=== PATIENT | male | born 1990 | race Hispanic/Latino ===

== ENCOUNTER 2019-06-02 01:01 | Emergency (ER) | payer BC ==
[~2019-06-02] VITALS: Ht 162.6 cm; Wt 99.8 kg
--- NOTE | 2019-06-02 01:44 | NUR ---
[facility] NOTIFIED OF US ORDER.
[2019-06-02] MEDS ORDERED: KETOROLAC TROMETHAMINE 30 MG/ML VIAL ONE (01:51)
[2019-06-02] MEDS ORDERED: SODIUM CHLORIDE 0.9% 1000ML 1,000 ML ONE (01:51)
[2019-06-02] MEDS ORDERED: ONDANSETRON HCL INJ 2MG/ML 2ML 2 MG/ML VIAL ONE (01:52)
--- NOTE | 2019-06-02 02:22 | Diagnostic Imaging Report ---
EXAMINATION: CT of the abdomen and pelvis without contrast. TECHNIQUE: Spiral CT images of the abdomen and pelvis were performed from the lung bases to the lesser trochanters. No intravenous contrast was given per physician's request. Coronal and sagittal reformatted images were obtained. COMPARISON: None. CLINICAL HISTORY:Left abdominal and pelvic pain for 2-3 days DISCUSSION: ABSENCE OF INTRAVENOUS CONTRAST DECREASES SENSITIVITY FOR DETECTION OF FOCAL LESIONS AND VASCULAR PATHOLOGY. ABDOMEN/PELVIS: LOWER THORAX: Unremarkable. HEPATOBILIARY: Marked diffuse hepatic steatosis. No focal hepatic lesions. No intra or extrahepatic biliary ductal dilation. GALLBLADDER: No radio-opaque stones or sludge. No wall thickening. SPLEEN: No splenomegaly. PANCREAS: No focal masses or ductal dilatation. ADRENALS: No adrenal nodules. KIDNEYS/URETERS: Punctate nonobstructing calculus in the left inferior pole (coronal image 55). No other renal or ureteral calculi, hydronephrosis or obstruction. No perinephric stranding or contour abnormalities. PELVIC ORGANS/BLADDER: Bladder is decompressed but grossly unremarkable. Prostate is unremarkable. PERITONEUM/RETROPERITONEUM: No free air or fluid. LYMPH NODES: No intra-abdominal,retroperitoneal, pelvic or inguinal lymphadenopathy. VESSELS: Unremarkable for noncontrast exam. GI TRACT: Distal descending and proximal sigmoid diverticulosis. There is an approximately 6 cm segment of the proximal sigmoid colon which shows moderate wall thickening and surrounding inflammatory changes (series 2, image 74 and coronal image 49). No foci of extra luminal air. Rest of the bowel shows no dilation, obstruction or wall thickening. Appendix is well identified and normal in caliber. BONES AND SOFT TISSUES: No aggressive lytic lesions. Soft tissues are unremarkable. IMPRESSION: 1. Findings in the proximal sigmoid colon likely represent diverticulitis. No perforation. Unable to assess for abscess formation given the lack of intravenous contrast. 2. Punctate nonobstructing calculus in the left inferior pole. No other renal or any ureteral calculi, hydronephrosis or obstruction. 3. Marked diffuse hepatic steatosis. Signed by: Dr. Virgil Kevin M.D. on 06/02/2019 2:19 AM
[2019-06-02] MEDS ORDERED: CIPROFLOXACIN 500 MG TAB ONE (03:00)
--- NOTE | 2019-06-02 03:19 | Diagnostic Imaging Report ---
EXAMINATION: Scrotal ultrasound CLINICAL INDICATION: Testicular pain for 2 years. COMPARISON: None. TECHNIQUE: Grayscale and color Doppler evaluation of the scrotum was performed in transverse and longitudinal planes. FINDINGS: The right testicle measures 4.5 x 2.2 x 3.2 cm. Normal vascularity. Multiple punctate hyperechoic focus consistent with microcalcifications.. No focal masses. The right epididymis measures 1.3 x 1.1 x 0.8 cm. 0.5 x 0.6 x 0.5 cm cystic, anechoic lesion in the right epididymal head.. Trace right hydrocele. No varicocele. There is normal arterial and venous flow to the right testicle, without evidence of torsion. The left testicle measures 4.3 x 2.1 x 3.0 cm. Multiple punctate echogenic foci consistent with microcalcifications. No focal masses. Normal vascularity... The left epididymis measures 1.1 x 1.2 x 0.9 cm. No nodules or masses.. Small left hydrocele. No varicocele. There is normal arterial and venous flow to the left testicle without evidence of torsion. The scrotum has a normal appearance, without focal lesions. IMPRESSION: 1. 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 In the absence of any other risk factors for testicular cancer (e.g., personal history of testicular cancer, a father or brother with testicular cancer, history of cryptorchidism or maldescent, testicular atrophy, or other risk factors), no further imaging or biochemical follow-up is necessary; all that is recommended is routine monthly testicular self-examination. However, if the patient has risk factors for testicular cancer, referral to a urologist for evaluation and determination of an optimal follow-up strategy is recommended. https://www.ajronline.org/doi/10.2214/AJR.15.38605 2. Normal bilateral testicular size and flow. Low likelihood of torsion. 3. Trace right and small left hydroceles. 4. 0.6 cm right epididymal head simple cyst versus spermatocele Signed by: Dr. Virgil Kevin M.D. on 06/02/2019 3:15 AM
[2019-06-02 03:23] VITALS: BP 132/72
--- OUTSIDE RECORDS SUMMARY | 2019-06-02 06:10 | XMS REPORT ---
Author [facility] Address Unknown Phone Unavailable Care Team Providers Care Chief Projectionist Name Role Phone Sharla VELARDE Unavailable Unavailable Problems This patient has no known problems. Allergies, Adverse Reactions, Alerts This patient has no known allergies or adverse reactions. Medications This patient has no known medications. Results Test Description Test Time Test Comments Text Results Atomic Results Result Comments TESTICULAR-HOPD 2019-06-02 03:04:00 [place] [id number] Patient Name: BARB VERMA MR #: [id number] : 1990 Age/Sex: 28/M Req #: [id number] Adm Physician: Ordered by: HE VELARDE MD Report #: [id number] Location: [facility] Room/Bed: Procedure[facility] [id number] Exam Date: Exam Time: REPORT STATUS: Signed EXAMINATION: Scrotal ultrasound CLINICAL INDICATION: Testicular pain for 2 years. COMPARISON: None. TECHNIQUE: Grayscale and color Doppler evaluation of the scrotum was performed in transverse and longitudinal planes. FINDINGS: The right testicle measures 4.5 x 2.2 x 3.2 cm. Normal vascularity. Multiple punctate hyperechoic focus consistent with microcalcifications.. No focal masses. The right epididymis measures 1.3 x 1.1 x 0.8 cm. 0.5 x 0.6 x 0.5 cm cystic, anechoic lesion in the right epididymal head.. Trace right hydrocele. No varicocele. There is normal arterial and venous flow to the right testicle, without evidence of torsion. The left testicle measures 4.3 x 2.1 x 3.0 cm. Multiple punctate echogenic foci consistent with microcalcifications. No focal masses. Normal vascularity... The left epididymis measures 1.1 x 1.2 x 0.9 cm. No nodules or masses.. Small left hydrocele. No varicocele. There is normal arterial and venous flow to the left testicle without evidence of torsion. The scrotum has a normal appearance, without focal lesions. IMPRESSION: 1. 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 In the absence of any other risk factors for testicular cancer (e.g., personal history of testicular cancer, a father or brother with testicular cancer, history of cryptorchidism or maldescent, testicular atrophy, or other risk factors), no further imaging or biochemical follow-up is necessary; all that is recommended is routine monthly testicular self- examination. However, if the patient has risk factors for testicular cancer, referral to a urologist for evaluation and determination of an optimal follow- up strategy is recommended. https://www.ajronline.org/doi/10.2214/AJR.15.99944 2. Normal bilateral testicular size and flow. Low likelihood of torsion. 3. Trace right and small left hydroceles. 4. 0.6 cm right epididymal head simple cyst versus spermatocele Signed by: Dr. Cloin Platt M.D. on 06/02/2019 3:15 AM Dictated By: COLIN PLATT MD 4 Transcribed By: WONG on 06/02/19314 COPY TO: HE VELARDE MD CT ABD/PEL WO CONTRAST-HOPD 2019-06-02 02:13:00 [place] [id number] Patient Name: BARB VERMA MR #: [id number] : 1990 Age/Sex: 28/M Req #: [id number] Adm Physician: Ordered by: HE VELARDE MD Report #: [id number] Location: [facility] Room/Bed: Procedure: HOPD/CT ABD/PEL WO CONTRAST-HOPD Exam Date: 06/02/19 Exam Time: 0150 REPORT STATUS: Signed EXAMINATION: CT of the abdomen and pelvis without contrast. TECHNIQUE: Spiral CT images of the abdomen and pelvis were performed from the lung bases to the lesser trochanters. No intravenous contrast was given per physician's request. Coronal and sagittal reformatted images were obtained. COMPARISON: None. CLINICAL HISTORY:Left abdominal and pelvic pain for 2-3 days DISCUSSION: ABSENCE OF INTRAVENOUS CONTRAST DECREASES SENSITIVITY FOR DETECTION OF FOCAL LESIONS AND VASCULAR PATHOLOGY. ABDOMEN/PELVIS: LOWER THORAX: Unremarkable. HEPATOBILIARY: Marked diffuse hepatic steatosis. No focal hepatic lesions. No intra or extrahepatic biliary ductal dilation. GALLBLADDER: No radio-opaque stones or sludge. No wall thickening. SPLEEN: No splenomegaly. PANCREAS: No focal masses or ductal dilatation. ADRENALS: No adrenal nodules. KIDNEYS/URETERS: Punctate nonobstructing calculus in the left inferior pole (coronal image 55). No other renal or ureteral calculi, hydronephrosis or obstruction. No perinephric stranding or contour abnormalities. PELVIC ORGANS/BLADDER: Bladder is decompressed but grossly unremarkable. Prostate is unremarkable. PERITONEUM/RETROPERITONEUM: No free air or fluid. LYMPH NODES: No intra-abdominal,retroperitoneal, pelvic or inguinal lymphadenopathy. VESSELS: Unremarkable for noncontrast exam. GI TRACT: Distal descending and proximal sigmoid diverticulosis. There is an approximately 6 cm segment of the proximal sigmoid colon which shows moderate wall thickening and surrounding inflammatory changes (series 2, image 74 and coronal image 49). No foci of extra luminal air. Rest of the bowel shows no dilation, obstruction or wall thickening. Appendix is well identified and normal in caliber. BONES AND SOFT TISSUES: No aggressive lytic lesions. Soft tissues are unremarkable. IMPRESSION: 1. Findings in the proximal sigmoid colon likely represent diverticulitis. No perforation. Unable to assess for abscess formation given the lack of intravenous contrast. 2. Punctate nonobstructing calculus in the left inferior pole. No other renal or any ureteral calculi, hydronephrosis or obstruction. 3. Marked diffuse hepatic steatosis. Signed by: Dr. Colin Platt M.D. on 06/02/2019 2:19 AM Dictated By: COLIN PLATT MD 8 Transcribed By: WONG on 06/02/19218 COPY TO: HE VELARDE MD
== END 2019-06-02 03:24 | disposition home or self-care (01) ==
LOC: FSED 01:01
DX: R30.0 Dysuria (principal); R31.9 Hematuria, unspecified; R10.32 Left lower quadrant pain; N20.0 Calculus of kidney; I10 Essential (primary) hypertension
CPT/HCPCS: 74176; 76870; 96374; 96375; 99284; J1885; J2405; J7030